=== PATIENT | female | born 1980 | race Caucasian/White ===

== ENCOUNTER 2018-06-05 14:48 | Emergency (ER) | payer OTHER | END 2018-06-05 15:09 | disposition left against medical advice (07) | LOC: M ED 14:48 | DX: R05 Cough (principal); Z53.21 Procedure and treatment not carried out due to patient leaving prior to being seen by health care provider ==

== ENCOUNTER 2018-12-27 12:16 | Emergency (ER) | payer OTHER ==
[~2018-12-27] VITALS: Ht 152.4 cm; Wt 77.3 kg
[2018-12-27] MEDS ORDERED: IBUP-1022 PO (13:04)
[2018-12-27] MEDS ORDERED: IBUPROFEN 600 MG TAB PO ONE (13:15)
[2018-12-27 13:18] VITALS: BP 118/63
--- NOTE | 2018-12-27 13:35 | REP ---
RIGHT ANKLE, FOUR VIEWS: HISTORY: Trauma. There is no acute fracture or dislocation. The joint space is normal in appearance. A calcified density is posterior to the joint space. This represents ligamentous or tendon calcification. Soft tissue swelling is present. IMPRESSION: There is no acute fracture or dislocation. Electronically Signed by Francesco Kauffman MD 12/27/2018 01:42 P
== END 2018-12-27 13:30 | disposition home or self-care (01) ==
LOC: M ED 12:16
DX: S93.401A Sprain of unspecified ligament of right ankle, initial encounter (principal); W19.XXXA Unspecified fall, initial encounter; Y92.89 Other specified places as the place of occurrence of the external cause; Y93.9 Activity, unspecified; Y99.9 Unspecified external cause status; Z72.0 Tobacco use

== ENCOUNTER → 2020-01-26 | Outpatient (CLI) | payer OTHER ==
[~2020-01-26] MED LIST: IBUP-1022 PO; QC A650T3 PO
== END ==
LOC: M LABSMTC 08:57
PROVIDERS: ATTEND Anesthesiology
DX: Z01.818 Encounter for other preprocedural examination (principal); Z11.59 Encounter for screening for other viral diseases
CPT/HCPCS: C9803; U0003

== ENCOUNTER 2020-01-29 11:06 | Day surgery (SDC) | payer OTHER ==
[~2020-01-29] VITALS: Ht 152.4 cm; Wt 78.9 kg
[~2020-01-29 11:06] MED LIST changes: -QC A650T3 PO; +fentaNYL 100 MCG/2 ML INJECTION (J3010) IV SCH
[2020-01-29] MEDS ORDERED: dexameTHASONE 10MG/1ML VIAL PRES.FREE (J1100 PER 1MG) ONE (11:07)
[2020-01-29] MEDS ORDERED: ROPIvacaine 0.5% 30ML INJECTION (J2795 PER 1MG) ONE (11:07)
[2020-01-29] MEDS ORDERED: QC A650T3 PO (11:28)
[2020-01-29] MEDS ORDERED: MIDAZOLAM INJ 2MG/2ML VIAL (J2250 PER 1MG) As Ordered ONE ×2 (13:07→13:26)
[2020-01-29] MEDS ORDERED: fentaNYL 100 MCG/2 ML INJECTION (J3010) As Ordered ONE ×4 (13:07→14:59)
[2020-01-29] MEDS: MIDAZOLAM INJ 2MG/2ML VIAL (J2250 PER 1MG) IV SCH ×2 (13:22→13:24)
[2020-01-29] MEDS ORDERED: ROCURONIUM BROMIDE 50 MG/5 ML VIAL As Ordered ONE (13:26)
[2020-01-29] MEDS ORDERED: METOCLOPRAMIDE INJ 10MG/2ML VIAL (J2765 PER 1) As Ordered ONE (13:26)
[2020-01-29] MEDS ORDERED: ONDANSETRON 4MG/2ML VIAL As Ordered ONE (13:26)
[2020-01-29] MEDS ORDERED: SUGAMMADEX SODIUM 500 MG/5 ML VIAL (BRIDION) As Ordered ONE (13:26)
[2020-01-29] MEDS ORDERED: propofoL 200 MG/20 ML VIAL As Ordered ONE (13:26)
[2020-01-29] MEDS ORDERED: LIDOCAINE 2% 100MG/5ML SDV (FOR ANES.) As Ordered ONE (13:26)
[2020-01-29] MEDS ORDERED: dexameTHASONE 4 MG/ML 1ML VIAL (J1100 PER 1MG) As Ordered ONE (13:26)
[2020-01-29] MEDS ORDERED: ceFAZolin 2 GM/D5W 50 ML IV BAG (J0690 PER 500MG) As Ordered ONE (13:52)
[2020-01-29] MEDS ORDERED: SCOPOLAMINE 1MG TRANSDERMAL PATCH As Ordered ONE (14:13)
[2020-01-29] MEDS ORDERED: ACETAMINOPHEN 1000MG 100ML IV BTL (OFIRMEV) (J0131 PER 10MG) As Ordered ONE (14:48)
[2020-01-29] MEDS ORDERED: oxyCODONE 5MG TAB PO PRN (16:45)
[2020-01-29] MEDS ORDERED: fentaNYL 100 MCG/2 ML INJECTION (J3010) IV PRN (16:45)
[2020-01-29] MEDS ORDERED: LR 1,000 ML IV SCH ×2 (16:45)
[2020-01-29] MEDS ORDERED: ONDANSETRON 4MG/2ML VIAL IV PRN (16:45)
[2020-01-29 18:15] VITALS: BP 130/87
[2020-01-30] MEDS ORDERED: SCOPOLAMINE 1MG TRANSDERMAL PATCH TOP ONE (06:00)
[2020-01-30] MEDS ORDERED: LR 1,000 ML IV ONE (06:00)
[2020-01-30] MEDS ORDERED: LIDOCAINE 1% MDV 20ML VIAL SQ PRN (06:00)
--- NOTE | 2020-02-05 10:21 | RO ---
DATE OF PROCEDURE: 01/29/2020 PREOPERATIVE DIAGNOSES: 1. Right ankle instability. 2. Right peroneus brevis tear. POSTOPERATIVE DIAGNOSES: 1. Right ankle instability. 2. Right peroneus brevis partial tear. 3. Mild peroneus longus tendinosis in addition to tenosynovitis throughout the peroneal tendon sheath. PROCEDURE: 1. Right Brostrom-Serrano procedure. 2. Repair right peroneus brevis partial tear. 3. Debridement of the peroneal tendon sheath. SURGEON: Roxy Schreiber MD BUTTON TACKER: Lucas Huggins PA-C ANESTHESIA: General endotracheal (GET) and popliteal block. ESTIMATED BLOOD LOSS: 10 mL. COMPLICATIONS: None. CONDITION: Stable to recovery. INDICATIONS: Sasha Montiel is a 39-year-old female who has had longstanding pain and instability to her right ankle. She has failed conservative measures. Risks and benefits of surgery were discussed with the patient in detail and include, but are not limited to, infection, damage to nerves and blood vessels, continued pain and stiffness, need for additional procedures. Informed consent was obtained in the office. DESCRIPTION OF PROCEDURE: Patient was met in the preoperative holding area, where her right lower extremity was marked as the correct operative site. She underwent a nerve block by the anesthesia team. She was taken to the operating room, where she was placed in the supine position on operating room table. Bony prominences were well padded. She received antibiotics within 60 minutes prior to incision. A well-padded tourniquet was placed on the right upper thigh. Chlorhexidine scrub was performed of the right lower extremity, and it was prepped and draped in the normal sterile fashion. An official time-out was held, where the correct patient, operative site, and operative procedure were verified. Incision was marked out over the posterior aspect of the fibula. The leg was exsanguinated, and tourniquet was inflated to 250 mmHg. An anterior drawer and talar tilt exam was performed on the ankle prior to inflating the tourniquet, and she was found to have moderate instability of her ankle with this exam under anesthesia. At this point, incision was made. The peroneal tendon sheath was incised. The superior peroneal retinaculum was sharply incised off the posterior aspect of the fibula. The peroneus longus tendon was examined and found to be in good condition except for a very small segment of mild tendinosis in the region of the peroneal tubercle. The peroneal tubercle was quite large and, thus, was removed with a rongeur to help relieve any stenosis of this area that could be potentially causing the tendinosis. Next, peroneus brevis was examined. There was a small partial tear through the mid substance of the tendon in the retromalleolar area, and the tendon was significantly flattened. There was also a low-lying brevis muscle. Low-lying brevis was excised. Tendon was debrided and repaired with #3-0 Vicryl. Following this, there was nice tubularization to the tendon and it fit nicely in the fibular groove. There was a fair amount of synovitis throughout the peroneal tendon sheath, and this was all debrided. At this point, attention was turned to the anterior aspect of the fibula for the Brostrom-Serrano part of the procedure. A cuff of tissue including the capsule and anterior talofibular ligament (ATFL) and calcaneofibular ligament (CFL) remnants was taken off the anterior aspect of the fibula. Tissue was quite attenuated in this region. Fibula was prepared by removing any remaining soft tissue. Two suture anchors were placed in the region of the ATFL and CFL. The #2 FiberWires were passed through the cuff of tissue and secured nicely to the fibula with the foot in neutral dorsiflexion. There was a nice cuff of tissue for repair at this point. Further reinforcement was performed with #0 Vicryl and the Serrano modification. Finally, the superior peroneal retinaculum was also repaired with #0 Vicryl and allowed for a nice reduction of the peroneal tendons. There was smooth gliding of the peroneal tendons with range of motion of the ankle. Copious irrigation was performed. The soft tissues were closed with #3-0 Vicryl, and skin was closed with a running #3-0 nylon. A sterile dressing was applied, and patient was placed into a well-padded splint. PLAN: Patient will be non-weightbearing in the right lower extremity for 6 weeks. I will see her in 2 weeks for a wound check and likely placement into a cast. She will be on aspirin for deep venous thrombosis (DVT) prophylaxis. She has requested oxycodone for pain control as she is nauseous with other medications.
== END 2020-01-29 18:20 | disposition home or self-care (01) ==
LOC: M SDC 11:06
PROVIDERS: ATTEND Orthopaedic Surgery
DX: M25.371 Other instability, right ankle (principal); F41.9 Anxiety disorder, unspecified; Z88.5 Allergy status to narcotic agent
CPT/HCPCS: 27698; 81025; C1713; J0131; J1100; J2250; J2405; J2765; J2795; J3010

== ENCOUNTER → 2020-04-11 | Outpatient (CLI) | payer OTHER ==
[~2020-04-11] MED LIST changes: +QC A650T3 PO; -fentaNYL 100 MCG/2 ML INJECTION (J3010) IV SCH
== END ==
LOC: M LABSMTC 10:35
PROVIDERS: ATTEND Orthopaedic Surgery
DX: Z11.59 Encounter for screening for other viral diseases (principal)

== ENCOUNTER → 2020-04-15 | Outpatient (REF) | payer OTHER | LOC: M LAB REF 13:11 | PROVIDERS: ATTEND Orthopaedic Surgery | DX: S91.001A Unspecified open wound, right ankle, initial encounter (principal); X58.XXXA Exposure to other specified factors, initial encounter; Y92.9 Unspecified place or not applicable; Y93.9 Activity, unspecified; Y99.9 Unspecified external cause status ==

== ENCOUNTER → 2020-09-01 | Outpatient (CLI) | payer OTHER | LOC: M LABSMTC 14:08 | PROVIDERS: ATTEND Anesthesiology | DX: Z01.812 Encounter for preprocedural laboratory examination (principal); Z20.828 Contact with and (suspected) exposure to other viral communicable diseases ==

== ENCOUNTER 2020-09-05 06:22 | Day surgery (SDC) | payer OTHER ==
[~2020-09-05] VITALS: Ht 152.4 cm; Wt 83.0 kg
[~2020-09-05 06:22] MED LIST changes: +LIDOCAINE 1% MDV 20ML VIAL SQ PRN; +LR 1,000 ML IV ONE; +ceFAZolin SOD 2 GM in IV 1 EA IV ONE
[2020-09-05] MEDS ORDERED: ROPIvacaine 0.5% 30ML INJECTION (J2795 PER 1MG) As Ordered ONE (07:07)
[2020-09-05] MEDS ORDERED: EPINEPHrine INJ 1 MG/ML 1ML AMP As Ordered ONE (07:07)
[2020-09-05] MEDS ORDERED: fentaNYL 100 MCG/2 ML INJECTION (J3010) As Ordered ONE ×2 (07:07→07:18)
[2020-09-05] MEDS ORDERED: dexameTHASONE 10MG/1ML VIAL PRES.FREE (J1100 PER 1MG) As Ordered ONE (07:07)
[2020-09-05] MEDS ORDERED: MIDAZOLAM INJ 2MG/2ML VIAL (J2250 PER 1MG) As Ordered ONE ×2 (07:07→07:21)
[2020-09-05] MEDS ORDERED: SUCCINYLCHOLINE 100 MG/5 ML SYRINGE (J0330) As Ordered ONE (07:18)
[2020-09-05] MEDS ORDERED: LIDOCAINE 2% 100MG/5ML SDV (FOR ANES.) As Ordered ONE (07:18)
[2020-09-05] MEDS ORDERED: propofoL 200 MG/20 ML VIAL As Ordered ONE ×2 (07:18→09:14)
[2020-09-05] MEDS ORDERED: ROCURONIUM BROMIDE 50 MG/5 ML VIAL As Ordered ONE ×2 (07:18→08:36)
[2020-09-05] MEDS ORDERED: KETAMINE INJ 500 MG/5 ML VIAL As Ordered ONE (07:21)
[2020-09-05] MEDS ORDERED: EPINEPHrine INJ 1 MG/ML 1ML AMP XX ONE (07:30)
[2020-09-05] MEDS ORDERED: dexameTHASONE 10MG/1ML VIAL PRES.FREE (J1100 PER 1MG) XX ONE (07:30)
[2020-09-05] MEDS ORDERED: ROPIvacaine 0.5% 30ML INJECTION (J2795 PER 1MG) XX ONE (07:30)
[2020-09-05] MEDS ORDERED: MIDAZOLAM INJ 2MG/2ML VIAL (J2250 PER 1MG) IV PRN (07:30)
[2020-09-05] MEDS ORDERED: fentaNYL 100 MCG/2 ML INJECTION (J3010) IV PRN ×2 (07:30→10:15)
[2020-09-05] MEDS ORDERED: LR 1,000 ML IV SCH ×2 (10:15→10:30)
[2020-09-05] MEDS ORDERED: ONDANSETRON 4MG/2ML VIAL IV PRN (10:15)
[2020-09-05] MEDS ORDERED: oxyCODONE 5MG TAB PO PRN (10:15)
[2020-09-05 10:42] VITALS: BP 126/77
--- NOTE | 2020-09-05 12:03 | RO ---
OPERATIVE NOTE DATE OF OPERATION: 09/05/2020 PREOPERATIVE DIAGNOSIS: Right peroneal tendon subluxation. POSTOPERATIVE DIAGNOSIS: Right peroneal tendon subluxation with incompetence superior peroneal retinaculum and flat fibular groove. PROCEDURES: 1. Peroneal tendon debridement and peroneus brevis tubularization. 2. Fibular groove deepening osteotomy. 3. Superior peroneal retinaculum repair. SURGEON: Roxy Schreiber MD ASSIST: Lewis Mars PA-C ANESTHESIA: General endotracheal, popliteal nerve block. EBL: 25 mL. SPECIMENS: Culture swabs x3 anaerobic and 3 aerobic. COMPLICATIONS: None. CONDITION: Stable to recovery. INDICATIONS: Sasha Montiel is a 40-year-old female who developed peroneal tendon subluxation status post prior peroneal tendon surgery. She failed conservative measures. Risks and benefits of surgery were discussed with her in detail and include but are not limited to infection, damage to nerves and blood vessels, continued pain and stiffness, need for additional procedures. Informed consent was obtained. PROCEDURE: The patient was met in the preoperative holding area where her right lower extremity was marked as the correct operative site. She underwent a popliteal nerve block. She was taken to the operating room and underwent general anesthesia. She was placed in floppy lateral position. Bony prominences were all padded. A well padded tourniquet was placed on the right upper thigh. Antibiotics were given within 60 minutes prior to incision. The left lower extremity was prepped and draped in normal sterile fashion. An official time out was held where correct patient, operative side and operative procedure were verified. An incision was made using the patient's prior scar over the peroneal tendons. It was extended both proximally and distally. Care was performed to carefully dissect beneath the skin layer. There was still a layer of tissue which contained some significantly lengthened SPR directly under the skin. I sharply incised the SPR off the fibula and tagged for later repair. The peroneal brevis tendon was significantly flattened and subluxed over the anterolateral aspect of the fibula. The tendon was carefully debrided. There is a small area of tendinosis which was quite mild in inframalleolar region. Copious irrigation was performed. I also debrided the peroneus longus tendon which overall was intact. There was mild tendinosis but no obvious tear or other pathology to the peroneus longus tendon. There was tenosynovitis of the peroneal tendons which was also debrided. At this point the periosteum was removed off the posterior aspect of the fibula. A small 3 mm jazmin was used to deepen the fibular groove. The periosteum was then placed back over the distal fibula. The tendons fit nicely in this area. There was essentially a nonexistent groove to begin with and the fibula was flat in contour. After using the jazmin to do fibular groove deepening osteotomy there was nice contour and place for the peroneal tendons to fit. The peroneal brevis was then tubularized using 2-0 FiberWire along its edges. Copious irrigation was again performed. At this point I used a 2-0 drill to pass drill holes through the distal fibula. The superior peroneal retinaculum and remaining tissue in the area was tightened over the distal fibula. I ensure I could easily still pass [place] through this and that there was smooth gliding of the tendons. There was no subluxation after repair of the superior peroneal retinaculum. Again, this was repaired with combo of 2-0 FiberWire and 2-0 Vicryl. Irrigation was then performed. Initially I had taken three culture swabs aerobic and three culture swabs anaerobic tissue before I started the surgery in the region of the peroneal tendon sheath and peroneal tendons to be on the safe side as the patient had had a history of remote infection. There was no evidence of infection at the time of surgery. Again, there was some mild tenosynovitis but overall the tissues were satisfactory quality and there was no evidence of infection. Soft tissues were closed with 3-0 Vicryl and 3-0 nylon. Sterile dressing was applied. The patient was placed into a well padded splint. She was extubated and taken to the recovery room in stable condition. Lewis Mars PA-C was present for the entire case and was essential for soft tissue retraction, closure and overall decrease in tourniquet time. PLAN: The patient will be nonweightbearing for 6 weeks. I will see her in one week for wound check and cast placement. Her sutures must stay in for 3 weeks. She will be on Aspirin for DVT prophylaxis. I will place her on Keflex until her first wound check and cultures return to be conservative. MTDYanick
== END 2020-09-05 11:19 | disposition home or self-care (01) ==
LOC: M SDC 06:22
PROVIDERS: ATTEND Orthopaedic Surgery
DX: S86.391A Other injury of muscle(s) and tendon(s) of peroneal muscle group at lower leg level, right leg, initial encounter (principal); X58.XXXA Exposure to other specified factors, initial encounter; Y92.89 Other specified places as the place of occurrence of the external cause; Y93.9 Activity, unspecified; Y99.9 Unspecified external cause status; Z88.5 Allergy status to narcotic agent; F17.218 Nicotine dependence, cigarettes, with other nicotine-induced disorders
CPT/HCPCS: 27659; 27676; 64445; 81025; 87070; 87075; 87205; J0171; J0330; J0690; J1100; J2250; J2795; J3010